=== PATIENT | female | born 1965 | race Caucasian/White ===

== ENCOUNTER 2018-09-05 15:44 | Emergency (ER) | payer BC ==
[2018-09-05] MEDS ORDERED: Tetan/Diph/Pertus SYR(Tdap)* 0.5 ML SYR(BOOSTRIX) use SYR IM ONE (15:45)
--- NOTE | 2018-09-05 15:46 | UC ---
Laceration HPI - HPI Summary HPI Summary: 53 yo female presents with LEFT arm laceration sustained about 30min [employer]. She tells me that she dropped a glass vase and sustained a laceration on her arm. Bandaged the area and came to . Last tetanus was last year. - History Of Current Complaint Stated Complaint: LACERATION ARM Hx Obtained From: Patient Laceration Location: Arm Mechanism Of Injury: Sharp Trauma Onset/Duration: Sudden Onset - Allergies/Home Medications Allergies/Adverse Reactions: Allergies Allergy/AdvReac Type Severity Reaction Status Date / Time aspirin Allergy GI Upset Verified 09/05/18 15:57 latex Allergy Rash Verified 09/05/18 15:57 Home Medications: Home Medications Bupropion XL* [Wellbutrin XL *] 300 mg QAM 09/05/18 [History Confirmed 09/05/18] Eszopiclone [Lunesta] 1 tab BEDTIME 09/05/18 [History Confirmed 09/05/18] PMH/Surg Hx/FS Hx/Imm Hx Respiratory History: Asthma - Surgical History Surgical History: Yes Surgery Procedure, Year, and Place: 11/23 lt knee meniscus,right knee, tonsillectomy, hysterectomy - Family History Known Family History: Positive: Hypertension - Social History Occupation: Employed Full-time Lives: With Family Alcohol Use: Occasionally Substance Use Type: None Smoking Status (MU): Never Smoked Tobacco - Immunization History Most Recent Influenza Vaccination: 1997 Most Recent Tetanus Shot: unknown Review of Systems All Other Systems Reviewed And Are Negative: Yes Constitutional: Positive: Negative Skin: Positive: Other - arm laceration Respiratory: Positive: Negative Cardiovascular: Positive: Negative Neurovascular: Positive: Negative Neurological: Positive: Negative Psychological: Positive: Negative Physical Exam - Summary Physical Exam Summary: GENERAL: NAD. WDWN. No pain distress. SKIN: 3.0cm linear laceration to dorsal aspect of left forearm with mild subcutaneous fat exposed. Wound appear clean. CHEST: No accessory muscle use. Breathing comfortably and in no distress. CV: Pulses intact. Cap refill <2seconds NEURO: Alert. PSYCH: Age appropriate behavior. Triage Information Reviewed: Yes Vital Signs Reviewed: Yes Laceration Repair - Laceration Repair 1 Description: Linear Laceration Size After Repair: Length (cm) - 3.0 Modified For Repair: No Anesthesia Used: 2.0% Lido Irrigation With Pressure Irrigation Device: Yes Closure Material: Sutures - FOUR Closure Method: Single Layer Suture Of: Skin Suture Type: Prolene - 5-0 Laceration Course/Dx - Course/Dx Course Of Treatment: The procedure was explained to the pt and all questions were answered. A time out was performed, witnessed, and signed. The area was irrigated with 250mL sterile saline. 1mL of 2% lidocaine without epi was administered and good anesthetization was achieved. In the usual sterile fashion , FOUR 5-0 prolene interrupted sutures were placed. The wound was bandaged with telfa. Pt tolerated procedure well. - Diagnosis Provider Diagnosis: Laceration of left forearm Discharge - Sign-Out/Discharge Documenting (check all that apply): Patient Departure All imaging exams completed and their final reports reviewed: No Studies - Discharge Plan Condition: Stable Disposition: HOME Patient Education Materials: Care For Your Stitches (ED), Laceration (DC) Referrals: Celsa Barreto MD [Primary Care Provider] - Additional Instructions: If you develop a fever, shortness of breath, chest pain, new or worsening symptoms - please call your PCP or go to the ED. 1) Please keep the area bandaged, clean, dry, and intact for the next 24- 48hours. 2) If you develop a fever, colored or thick discharge, increased pain or swelling - please call your PCP or go to the ED. 3) Please return in 7-10 days to have your FOUR sutures removed. - Billing Disposition and Condition Condition: STABLE Disposition: Home
[2018-09-05] MEDS ORDERED: Lidocaine 2% PF * 5 ML VIAL INJ ONE (15:54)
[2018-09-05] MEDS ORDERED: Lidocaine 2% PF * 5 ML VIAL ONE (15:56)
[2018-09-05 15:59] VITALS: BP 179/84
== END 2018-09-05 16:20 | disposition home or self-care (01) ==
LOC: UCEAST 15:44
DX: S51.812A Laceration without foreign body of left forearm, initial encounter (principal); J45.909 Unspecified asthma, uncomplicated; Z79.82 Long term (current) use of aspirin; Z91.040 Latex allergy status; W45.8XXA Other foreign body or object entering through skin, initial encounter; Y92.9 Unspecified place or not applicable
CPT/HCPCS: 12001; 99211; G0463

== ENCOUNTER 2019-01-23 07:05 | Emergency (ER) | payer BC ==
--- NOTE | 2019-01-23 07:08 | UC ---
Cardiac HPI - HPI Summary HPI Summary: Patient presents to urgent care reporting left-sided chest heaviness. Patient states last night she had squeezing sensation that went to her left axilla and bicep. Patient states she took Tums that did not make a difference. Patient states she then progressed to have heavy feeling. No radiation. No shortness of breath no diet diaphoresis no nausea. Patient did not take anything more for pain. Patient states she was alone and took Lunesta to help her sleep last night Tierra feel comfortable driving. Patient came this morning just to be evaluated. Patient does not have a history of hypertension, diabetes, hypercholesterol. Paternal grandfather had an PA. Parents are both from lung cancer. Patient's medications reviewed this visit. - History of Current Complaint Stated Complaint: CHEST PAIN Time Seen by Provider: 01/23/19 07:07 Hx Obtained From: Patient Onset/Duration: Gradual Onset Initial Severity: Mild Chest Pain Location: Left Lateral Character: Heaviness, Pressure/Squeezing - Allergy/Home Medications Allergies/Adverse Reactions: Allergies Allergy/AdvReac Type Severity Reaction Status Date / Time latex Allergy Rash Verified 01/23/19 07:13 aspirin AdvReac GI Upset Verified 01/23/19 07:13 Home Medications: Home Medications Loratadine [Claritin 10 MG CAP] 10 mg PO BEDTIME 01/23/19 [History Confirmed ] PMH/Surg Hx/FS Hx/Imm Hx Previously Healthy: Yes Psychological History: Depression - Surgical History Surgical History: Yes Surgery Procedure, Year, and Place: 11/23 lt knee meniscus,right knee, tonsillectomy, hysterectomy - Family History Known Family History: Positive: Cardiac Disease - paternal grandfather, Hypertension - Social History Occupation: Employed Full-time Lives: With Family Alcohol Use: Occasionally Substance Use Type: None Smoking Status (MU): Never Smoked Tobacco - Immunization History Most Recent Influenza Vaccination: 1997 Most Recent Tetanus Shot: unknown Review of Systems All Other Systems Reviewed And Are Negative: Yes Cardiovascular: Positive: Chest Pain Physical Exam - Summary Physical Exam Summary: Vital Signs Reviewed: Yes A+Ox3, tearful Eyes: Conjunctiva Clear, LEVI. EOM intact and full ENT: Hearing grossly normal TM x 2 clear, mmoist, uvula midline, no exudate, no erythema Neck: Positive: Supple Respiratory: Positive: No respiratory distress, No accessory muscle use + CTA throughout no w/r Cardiovascular: RRR nl s1, s2 no m/r CBT <2 sec abd soft + BS nt/nd no guarding, no distension Musculoskeletal Exam: CHACON x 4 without difficulty Strength Intact, ROM Intact Neurological: Positive: Alert, + sensation throughout Psychological: Positive: Normal Response To Family Skin: Positive: no rash, no ecchymosis Triage Information Reviewed: Yes Diagnostics - EKG Cardiac Rate: NL Cardiac Rhythm: Sinus: Normal Ectopy: None ST Segment: Normal - Assessment/Plan Course Of Treatment: Patient presents to urgent care for evaluation of chest discomfort started last night. Patient states initially he was a squeezing pain that went into her left axilla and bicep. Patient polly heaviness. No shortness of breath no change with position no nausea vomiting. Patient without cardiac history. Patient did not eat or drink anything today. On exam vital signs are stable. No reproducible pain. We'll give aspirin. EKG nondiagnostic for STEMI. We'll send to emergency department for further evaluation by EMS. Patient comfortable in agreement with plan. Spoke to MARY ANN Livingston in the ED who is aware patient coming. - Clinical Impression Provider Diagnosis: Chest pain Discharge - Sign-Out/Discharge Documenting (check all that apply): Patient Departure All imaging exams completed and their final reports reviewed: No Studies - Discharge Plan Condition: Good Disposition: TRANS HIGHER LVL OF CARE FAC Referrals: Celsa Barreto MD [Primary Care Provider] - - Billing Disposition and Condition Condition: GOOD Disposition: Trans Higher Lvl of Care Fac
[2019-01-23] MEDS ORDERED: Aspirin 81 mg CHEW TAB* 81 MG TAB.CHEW PO ONE (07:30)
[2019-01-23 07:38] VITALS: BP 141/71
== END 2019-01-23 07:50 | disposition short-term general hospital (02) ==
LOC: UCEAST 07:05
DX: R07.89 Other chest pain (principal); F32.9 Major depressive disorder, single episode, unspecified; Z88.6 Allergy status to analgesic agent; Z91.040 Latex allergy status; Z82.49 Family history of ischemic heart disease and other diseases of the circulatory system
CPT/HCPCS: 93005; 99213; A9270-GY; G0463

== ENCOUNTER 2019-01-23 08:09 | Emergency (ER) | payer BC ==
[2019-01-23 08:35] LABS: ABS Basophils 0.1 10^3/ul (0-0.2); ABS Eosinophils 0.1 10^3/ul (0-0.6); ABS Lymphocytes 1.7 10^3/ul (1.0-4.8); ABS Monocytes 0.3 10^3/ul (0-0.8); ABS Neutrophils 3.2 10^3/ul (1.5-7.7); Eosinophil % 1.7 %; Hematocrit 41 % (35-47); Hemoglobin 13.6 g/dL (12.0-16.0); Lymphocyte % 31.3 %; Mean Corpuscular HGB Conc 33 g/dL (31-36); Mean Corpuscular Hemoglobin 27 pg (27-31); Mean Corpuscular Volume 81 fL (80-97); Mean Platelet Volume 7.9 fL (7.4-10.4); Nucleated Red Blood Cells % 0.2; Platelet Count 289 10^3/uL (150-450); Red Blood Count 5.13 10^6 /uL (3.70-4.87); Red Cell Distribution Width 14 % (10.5-15); White Blood Count 5.4 10^3/uL (3.5-10.8)
[2019-01-23 08:41] LABS: INR 0.91 (0.82-1.09)
[2019-01-23 08:53] LABS: Albumin 4.2 g/dL (3.2-5.2); Albumin/Globulin Ratio 1.8 (1-3); BUN/Creatinine Ratio 20.3 (8-20); Calcium 9.3 mg/dL (8.6-10.3); EGFR African American 98.6 (>60); EGFR Non-African American 81.5 (>60); Globulin 2.4 g/dL (2-4); Magnesium 2.1 mg/dL (1.9-2.7); Potassium 4.1 mmol/L (3.5-5.0); Total Bilirubin 0.4 mg/dL (0.2-1.0); Total Protein 6.6 g/dL (6.4-8.9)
[2019-01-23 10:05] VITALS: BP 121/71
--- NOTE | 2019-01-23 10:40 | ED ---
HPI Chest Pain - HPI Summary HPI Summary: patient is a 53-year-old female coming to the ED from urgent care. Patient endorses left-sided chest "heaviness." She states she began to feel this last evening which radiated to her left upper arm. She took Tums twice overnight which did not relieve her symptoms. Symptoms are not worse with exertion or better with rest. Patient has no significant PMH including no history of hypertension, hypercholesterol, smoking history, diabetes. She was given 2 aspirin at urgent care which did not improve her symptoms. She does have a history of anxiety, but states this feels somewhat different than her typical anxiety symptoms. She states she has not been sleeping well lately and is endorsing fatigue. - History of Current Complaint Chief Complaint: EDChestPainROMI Time Seen by Provider: 01/23/19 08:12 Hx Obtained From: Patient Onset/Duration: Started Hours Ago Timing: Constant Initial Severity: Moderate Current Severity: Mild Pain Intensity: 3 Pain Scale Used: 0-10 Numeric Chest Pain Location: Left Anterior Chest Pain Radiates: Yes Chest Pain Radiates To:: Arm - upper arm/axillary area Character: Heaviness Aggravating Factor(s): Nothing Alleviating Factor(s): Nothing Associated Signs and Symptoms: Positive: Chest Pain, Anxiety, Recent Stress. Negative: Vision Changes, Headaches, Tingling, Weakness, Dizziness, Shortness of Breath - Risk Factors Pulmonary Embolism Risk Factors: Negative TAD Risk Factors: Negative - Allergy/Home Medications Allergies/Adverse Reactions: Allergies Allergy/AdvReac Type Severity Reaction Status Date / Time latex Allergy Rash Verified 01/23/19 07:13 aspirin AdvReac GI Upset Verified 01/23/19 07:13 PMH/Surg Hx/FS Hx/Imm Hx Previously Healthy: Yes Endocrine/Hematology History: Denies: Hx Diabetes, Hx Thyroid Disease Cardiovascular History: Denies: Hx Hypertension, Hx Pacemaker/ICD Respiratory History: Reports: Hx Asthma Denies: Hx Chronic Obstructive Pulmonary Disease (COPD) GI History: Denies: Hx Ulcer Musculoskeletal History: Reports: Hx Arthritis - OSTEO- LEFT THUMB, Other Musculoskeletal History - ELBOWS- STATES RELATED TO CARPAL TUNNEL Denies: Hx Scoliosis Sensory History: Reports: Hx Contacts or Glasses - WILL WEAR GLASSES DAY OF SURGERY Denies: Hx Hearing Aid Opthamlomology History: Reports: Hx Contacts or Glasses - WILL WEAR GLASSES DAY OF SURGERY Neurological History: Denies: Hx Headaches Psychiatric History: Reports: Hx Anxiety - ON MEDICATION FOR, Hx Depression - ON MEDICATION Denies: Hx Panic Disorder - Surgical History Surgery Procedure, Year, and Place: 11/23 lt knee meniscus,right knee, tonsillectomy, hysterectomy Hx Anesthesia Reactions: Yes - HYSTERECTOMY- N/V- TREATED WITH RELIEF - Immunization History Hx Pertussis Vaccination: No Immunizations Up to Date: Yes Infectious Disease History: No Infectious Disease History: Denies: Hx Clostridium Difficile, Hx Hepatitis, Hx Human Immunodeficiency Virus (HIV), Hx of Known/Suspected MRSA, Hx Shingles, Hx Tuberculosis, Hx Known/ Suspected VRE, Hx Known/Suspected VRSA, History Other Infectious Disease, Traveled Outside the [place] in Last 30 Days - Family History Known Family History: Positive: Cardiac Disease - paternal grandfather, Hypertension, Non-Contributory - Social History Occupation: Employed Full-time Lives: With Family Alcohol Use: Occasionally Hx Substance Use: No Substance Use Type: Reports: None Hx Tobacco Use: No Smoking Status (MU): Never Smoked Tobacco Review of Systems Negative: Fever, Chills, Fatigue, Skin Diaphoresis Negative: Epistaxis, Dental Pain Positive: Chest Pain - heaviness. Negative: Palpitations Negative: Shortness Of Breath, Cough Negative: Abdominal Pain, Vomiting, Diarrhea, Nausea Genitourinary: Negative Positive: no symptoms reported, see HPI Negative: Arthralgia, Myalgia Negative: Rash, Bruising Negative: Headache, Weakness, Paresthesia, Numbness, Syncope, Slurred Speech Positive: Anxious All Other Systems Reviewed And Are Negative: Yes Physical Exam Triage Information Reviewed: Yes Vital Signs On Initial Exam: Initial Vitals Temp Pulse Resp BP Pulse Ox 97 F 71 18 125/68 99 01/23/19 08:11 01/23/19 08:11 01/23/19 08:11 01/23/19 08:11 01/23/19 08:11 Vital Signs Reviewed: Yes Appearance: Positive: Well-Appearing, Well-Nourished Skin: Positive: Warm, Skin Color Reflects Adequate Perfusion Head/Face: Positive: Normal Head/Face Inspection, Temporal Artery Tenderness Eyes: Positive: EOMI, LEVI, Conjunctiva Clear Neck: Positive: Supple, No Lymphadenopathy Respiratory/Lung Sounds: Positive: Clear to Auscultation, Breath Sounds Present Cardiovascular: Positive: RRR, Pulses are Symmetrical in both Upper and Lower Extremities. Negative: Tachycardia, Leg Edema Left, Leg Edema Right Abdomen Description: Positive: Nontender, No Organomegaly, Soft Musculoskeletal: Positive: Normal, Strength/ROM Intact Neurological: Positive: Sensory/Motor Intact, Alert, Oriented to Person Place, Time, Facial Symmetry, Speech Normal Psychiatric: Positive: Anxious Diagnostics - Vital Signs Vital Signs Temp Pulse Resp BP Pulse Ox 01/23/19 10:04 97.8 F 72 18 121/71 97 01/23/19 10:00 16 121/70 01/23/19 09:44 63 15 114/73 97 01/23/19 09:15 75 25 107/72 97 01/23/19 09:00 76 18 100 01/23/19 08:44 69 15 130/75 98 01/23/19 08:15 71 125/68 99 01/23/19 08:14 74 99 01/23/19 08:11 97 F 71 18 125/68 99 - Laboratory Lab Results: Lab Results 01/23/19 01/23/19 01/23/19 Range/Units 08:26 08:26 08:26 WBC 5.4 (3.5-10.8) 10^3/uL RBC 5.13 H (3.70-4.87) 10^6 /uL Hgb 13.6 (12.0-16.0) g/dL Hct 41 (35-47) % MCV 81 (80-97) fL MCH 27 (27-31) pg MCHC 33 (31-36) g/dL RDW 14 (10.5-15) % Plt Count 289 (150-450) 10^3/uL MPV 7.9 (7.4-10.4) fL Neut % (Auto) 59.9 % Lymph % (Auto) 31.3 % [place] % (Auto) 5.9 % Eos % (Auto) 1.7 % Baso % (Auto) 1.2 % Absolute Neuts (auto) 3.2 (1.5-7.7) 10^3/ul Absolute Lymphs (auto) 1.7 (1.0-4.8) 10^3/ul Absolute Monos (auto) 0.3 (0-0.8) 10^3/ul Absolute Eos (auto) 0.1 (0-0.6) 10^3/ul Absolute Basos (auto) 0.1 (0-0.2) 10^3/ul Absolute Nucleated RBC 0.0 10^3/ul Nucleated RBC % 0.2 INR (Anticoag Therapy) 0.91 (0.82-1.09) D-Dimer, Quantitative < 200 (Less Than 230) ng/mL Sodium 140 (135-145) mmol/L Potassium 4.1 (3.5-5.0) mmol/L Chloride 108 (101-111) mmol/L Carbon Dioxide 26 (22-32) mmol/L Anion Gap 6 (2-11) mmol/L BUN 15 (6-24) mg/dL Creatinine 0.74 (0.51-0.95) mg/dL Est GFR ( Amer) 98.6 (>60) Est GFR (Non-Af Amer) 81.5 (>60) BUN/Creatinine Ratio 20.3 H (8-20) Glucose 97 (70-100) mg/dL Lactic Acid (0.5-2.0) mmol/L Calcium 9.3 (8.6-10.3) mg/dL Magnesium 2.1 (1.9-2.7) mg/dL Total Bilirubin 0.40 (0.2-1.0) mg/dL AST 15 (13-39) U/L ALT 21 (7-52) U/L Alkaline Phosphatase 84 (34-104) U/L Troponin I 0.00 (<0.04) ng/mL Total Protein 6.6 (6.4-8.9) g/dL Albumin 4.2 (3.2-5.2) g/dL Globulin 2.4 (2-4) g/dL Albumin/Globulin Ratio 1.8 (1-3) 01/23/ Range/Units 08:26 WBC (3.5-10.8) 10^3/uL RBC (3.70-4.87) 10^6 /uL Hgb (12.0-16.0) g/dL Hct (35-47) % MCV (80-97) fL MCH (27-31) pg MCHC (31-36) g/dL RDW (10.5-15) % Plt Count (150-450) 10^3/uL MPV (7.4-10.4) fL Neut % (Auto) % Lymph % (Auto) % [place] % (Auto) % Eos % (Auto) % Baso % (Auto) % Absolute Neuts (auto) (1.5-7.7) 10^3/ul Absolute Lymphs (auto) (1.0-4.8) 10^3/ul Absolute Monos (auto) (0-0.8) 10^3/ul Absolute Eos (auto) (0-0.6) 10^3/ul Absolute Basos (auto) (0-0.2) 10^3/ul Absolute Nucleated RBC 10^3/ul Nucleated RBC % INR (Anticoag Therapy) (0.82-1.09) D-Dimer, Quantitative (Less Than 230) ng/mL Sodium (135-145) mmol/L Potassium (3.5-5.0) mmol/L Chloride (101-111) mmol/L Carbon Dioxide (22-32) mmol/L Anion Gap (2-11) mmol/L BUN (6-24) mg/dL Creatinine (0.51-0.95) mg/dL Est GFR ( Amer) (>60) Est GFR (Non-Af Amer) (>60) BUN/Creatinine Ratio (8-20) Glucose (70-100) mg/dL Lactic Acid 1.0 (0.5-2.0) mmol/L Calcium (8.6-10.3) mg/dL Magnesium (1.9-2.7) mg/dL Total Bilirubin (0.2-1.0) mg/dL AST (13-39) U/L ALT (7-52) U/L Alkaline Phosphatase (34-104) U/L Troponin I (<0.04) ng/mL Total Protein (6.4-8.9) g/dL Albumin (3.2-5.2) g/dL Globulin (2-4) g/dL Albumin/Globulin Ratio (1-3) Result Diagrams: 01/23/19 08:26 01/23/19 08:26 Lab Statement: Any lab studies that have been ordered have been reviewed, and results considered in the medical decision making process. Chest Pain Course/Dx - Course Course Of Treatment: During this course of treatment, the patient is evaluated for left-sided chest heaviness. She denies any chest pain or shortness of breath. She denies any urinary symptoms, back pain, abdominal pain, headache, visual changes. Labs obtained which included troponin of 0.00. Chest x-ray shows no acute cardiopulmonary disease. Labs are otherwise WNL and benign. EKG shows normal sinus rhythm. Discussed results with patient. Patient states she feels comfortable following up with Dr. Celsa herrera, PCP and agrees to return to the ED for any worsening or changing symptoms. MONICA score = 1 for severe angina. Heart score = 1 for age. Risk factors are low. She is discharged with dx of angina, atypical chest pain and anxiety. Vital signs upon discharge are 97.8, heart rate is 72, respirations 18, 97% on room air 121/ 71. - Chest Pain Differential Diagnosis/HQI/PQRI: Acute ME, ACS, Angina, Chest Wall - Diagnoses Provider Diagnoses: Atypical chest pain, Anxiety Discharge - Sign-Out/Discharge Documenting (check all that apply): Patient Departure Patient Received Moderate/Deep Sedation with Procedure: No - Discharge Plan Condition: Stable Disposition: HOME Patient Education Materials: Chest Pain (ED) Referrals: Celsa Herrera MD [Primary Care Provider] - Additional Instructions: Please follow up with Dr. Herrera in a few days as discussed, if any symptoms worsen, return to the ED immediately - Billing Disposition and Condition Condition: STABLE Disposition: Home
[2019-01-24 22:02] LABS: B garinii/B afzelii PCR Negative (Negative); B mayonii PCR Negative (Negative)
== END 2019-01-23 10:04 | disposition home or self-care (01) ==
LOC: ED 08:09
DX: R07.89 Other chest pain (principal); F41.9 Anxiety disorder, unspecified; Z88.8 Allergy status to other drugs, medicaments and biological substances; Z91.040 Latex allergy status; Z82.49 Family history of ischemic heart disease and other diseases of the circulatory system
CPT/HCPCS: 36415; 71046; 80053; 83605; 83735; 84484; 85025; 85379; 85610; 87476; 87798; 93005; 99283

== ENCOUNTER 2019-08-01 07:16 | Emergency (ER) | payer BC ==
--- OUTSIDE RECORDS SUMMARY | 2019-08-01 07:24 | XMS REPORT | Continuity of Care Document ---
:1965 External Reference #:[id number] Author Name Lexi Escamilla, DO Address [address] [place] [address] Problems Active Problems Provider Date Adult health examination Onset: 08/16/2018 Vitreous degeneration Onset: 01/11/2018 Knee pain Onset: 12/04/2014 Inactive Problems Depressive disorder Onset: 03/15/2019 Inactive: 03/15/2019 Anxiety disorder Onset: 02/15/2019 Inactive: 02/15/2019 Chest pain Onset: 02/15/2019 Inactive: 02/15/2019 Social History Type Date Description Comments Sex Unknown Allergies, Adverse Reactions, Alerts Active Allergies Reaction Severity Comments Date NKDA 06/22/2019 Environmental 06/22/2019 Medications Active Medications SIG Qnty Indications Ordering Provider Date Venlafaxine HCL 3 daily oral 90tabs Raúl Dave MD 03/15/2019 37.5mg Tablets Eszopiclone Oral; Take 1 30tabs Unknown 02/26/2019 2mg Tablets Tablet By Mouth AT Bedtime Loratadine 1 once each day Unknown 03/08/2018 10mg Tablets prn Oral Multivitamin Oral Unknown 12/04/2014 Liquid History Medications Venlafaxine HCL ER 1 daily Oral 60caps Unknown 02/15/2019 - 03/15/2019 75mg Caps ER 24HR Bupropion Hydrochloride ER Oral; Take 1 Tablet 30tabs Unknown 02/06/2019 - 02/15/2019 (SR) By Mouth Every Day 150mg Tablets ER 12HR Medications Administered in Office Medication SIG Qnty Indications Ordering Provider Date DTaP Vaccine Younger Than 7 Unknown 05/10/2018 (Infanrix) Injection Immunizations CPT Code Status Date Vaccine Lot # [id number] Given 06/22/2019 Flu < 65 years [id number] 93785 Given 08/16/2018 Influenza Virus Vaccine, Quadrivalent, Split Virus, Im Use 0.5ML 05671 Given 08/16/2018 Flu < 65 years 24029 Given 08/16/2018 Influenza Virus Vaccine, Quadrivalent, Split, Preservative Free 71193 Given 08/16/2018 Flumist 41341 Given 08/16/2018 Flu High Dose 09806 Given 08/16/2018 Influenza Virus Vaccine, Split, Preserv Free, Intradermal Use 06856 Given 05/10/2018 Shingrix - Shingles vaccine, Herpes Zoster 55180 Given 05/10/2018 Polio - Ipol 09464 Given 05/10/2018 Kinrix - DTaP-IPV for 4 - 6 yrs 96098 Given 03/08/2018 Tdap - Boostrix/Adacel 68499 Given 03/08/2018 Shingrix - Shingles vaccine, Herpes Zoster 46534 Given 06/29/2013 Influenza Virus Vaccine, Quadrivalent, Split, Im Use 0.25ML 16105 Given 06/16/2013 Influenza Virus Vaccine, Quadrivalent, Split, Im Use 0.25ML 57387 Given 06/16/2013 Influenza Virus Vaccine, Quadrivalent, Split, Im Use 0.25ML 14334 Given 06/16/2013 Influenza Virus Vaccine, Quadrivalent, Split, Im Use 0.25ML 80163 Given 06/16/2013 Flu < 65 years 24112 Given 06/16/2013 Influenza Virus Vaccine, Quadrivalent, Split, Preservative Free 33048 Given 06/16/2013 Flumist 59421 Given 06/16/2013 Flu High Dose 28461 Given 06/16/2013 Influenza Virus Vaccine Split Virus Intramuscular Use 0.5ML 24113 Given 08/28/2004 Influenza Virus Vaccine, Quadrivalent, Split, Im Use 0.25ML 31849 Given 09/13/2001 Influenza Virus Vaccine, Quadrivalent, Split, Im Use 0.25ML Vital Signs Date Vital Result Comment 06/22/2019 12:03pm BP Systolic 136 mmHg BP Diastolic 62 mmHg Heart Rate 81 /min Body Temperature 98.4 F O2 % BldC Oximetry 99 % 03/15/2019 9:30am BP Systolic 126 mmHg Weight 231.00 lb Heart Rate 105 /min Body Temperature 97.5 F O2 % BldC Oximetry 99 % Results Test Date Facility Test Result H/L Range Note INR 01/23/2019 N2N/CCD Import INR 0.91 _ 0.82-1.09 Lactic Acid 01/23/2019 N2N/CCD Import Lactic Acid 1.0 mmol/L 0.5-2.0 mmol/L Lymph# 01/23/2019 N2N/CCD Import Lymph# 1.7 10_3/ul 1.0-4.8 10 3/ul Lymph% 01/23/2019 N2N/CCD Import Lymph% 31.3 % 20 - 45 % Magnesium 01/23/2019 N2N/CCD Import Magnesium 2.1 mg/dL 1.9-2.7 mg/dL MCH 01/23/2019 N2N/CCD Import MCH 27 pg 27-31 pg MCHC 01/23/2019 N2N/CCD Import MCHC 33 g/dL 31-36 g/dL MCV 01/23/2019 N2N/CCD Import MCV 81 fL 80-97 fL [place]# 01/23/2019 N2N/CCD Import [place]# 0.3 10_3/ul 0-0.8 10 3/ul [place]% 01/23/2019 N2N/CCD Import [place]% 5.9 % 0 - 10 % MPV 01/23/2019 N2N/CCD Import MPV 7.9 fL 7.4-10.4 fL Neut# 01/23/2019 N2N/CCD Import Neut# 3.2 10_3/ul 1.5-7.7 10 3/ul Neut% 01/23/2019 N2N/CCD Import Neut% 59.9 % 45 - 70 % NRBC# 01/23/2019 N2N/CCD Import NRBC# 0.0 10_3/ul NRBC% 01/23/2019 N2N/CCD Import NRBC% 0.2 _ Platelets 01/23/2019 N2N/CCD Import Platelets 289 10_3/uL 150-450 10 3/uL Potassium 01/23/2019 N2N/CCD Import Potassium 4.1 mmol/L 3.5-5.0 mmol/L Protein, Total 01/23/2019 N2N/CCD Import Protein, Total 6.6 g/dL 6.4- 8.9 g/dL RBC 01/23/2019 N2N/CCD Import RBC 5.13 High 3.70-4.87 10_6_/uL 10 6 /uL RDW 01/23/2019 N2N/CCD Import RDW 14 % 10.5-15 % Sodium 01/23/2019 N2N/CCD Import Sodium 140 mmol/L 135-145 mmol/L Troponin 01/23/2019 N2N/CCD Import Troponin 0.00 ng/mL <0.04 ng/mL WBC 01/23/2019 N2N/CCD Import WBC 5.4 10_3/uL 3.5-10.8 10 3/uL A/G Ratio 01/23/2019 N2N/CCD Import A/G Ratio 1.8 _ 1-3 Albumin 01/23/2019 N2N/CCD Import Albumin 4.2 g/dL 3.2-5.2 g/dL Alk Phos 01/23/2019 N2N/CCD Import Alk Phos 84 U/L 34-104 U/L Alt 01/23/2019 N2N/CCD Import Alt 21 U/L 7-52 U/L Anion Gap 01/23/2019 N2N/CCD Import Anion Gap 6 mmol/L 2-11 mmol/L Ast 01/23/2019 N2N/CCD Import Ast 15 U/L 13-39 U/L Baso# 01/23/2019 N2N/CCD Import Baso# 0.1 10_3/ul 0-0.2 10 3/ul Baso% 01/23/2019 N2N/CCD Import Baso% 1.2 % 0 - 2 % Bilirubin Total 01/23/2019 N2N/CCD Import Bilirubin Total 0.40 mg/dL 0.2 -1.0 mg/dL BUN 01/23/2019 N2N/CCD Import BUN 15 mg/dL 6-24 mg/dL BUN/Creat Ratio 01/23/2019 N2N/CCD Import BUN/Creat Ratio 20.3 _ High 8- 20 Calcium 01/23/2019 N2N/CCD Import Calcium 9.3 mg/dL 8.6-10.3 mg/dL Chloride 01/23/2019 N2N/CCD Import Chloride 108 mmol/L 101-111 mmol/L Co2 01/23/2019 N2N/CCD Import Co2 26 mmol/L 22-32 mmol/L Creatinine 01/23/2019 N2N/CCD Import Creatinine 0.74 mg/dL 0.51-0.95 mg/dL D Dimer 01/23/2019 N2N/CCD Import D Dimer < 200 Less Than 230 ng/mL Eosin# 01/23/2019 N2N/CCD Import Eosin# 0.1 10_3/ul 0-0.6 10 3/ul Eosin% 01/23/2019 N2N/CCD Import Eosin% 1.7 % 0 - 5 % GFR Afr Amer 01/23/2019 N2N/CCD Import GFR Afr Amer 98.6 _ >60 GFR Non Afr Amer 01/23/2019 N2N/CCD Import GFR Non Afr 81.5 _ >60 Amer Globulin 01/23/2019 N2N/CCD Import Globulin 2.4 g/dL 2-4 g/dL Glucose 01/23/2019 N2N/CCD Import Glucose 97 mg/dL 70-100 mg/dL Hematocrit 01/23/2019 N2N/CCD Import Hematocrit 41 % 35-47 % Hemoglobin 01/23/2019 N2N/CCD Import Hemoglobin 13.6 g/dL 12.0-16.0 g/dL Procedures Description No Information Available Medical Devices Description No Information Available Encounters Type Date Location Provider Dx Diagnosis Office Visit 06/22/2019 [facility] Lexi Karnow, F33.41 Major depressive 11:45a disorder, recurrent, in partial remission F41.1 Generalized anxiety disorder G47.00 Insomnia, unspecified Assessments Date Code Description Provider 06/22/2019 F33.41 Major depressive disorder, recurrent, in [facility] , partial remission 06/22/2019 F41.1 Generalized anxiety disorder Lexi Francine, 06/22/2019 G47.[address], [address] [facility] Future [facility]ment(s):09/22/2019 9:15 am - Lexi Escamilla, DO at [facility] Major depressive disorder, recurrent, in partial remissionComments:Overall mood is stable. Having negative side effects from the medication and things are already improving since weaning offWe discussed mood management without meds - sleeping well, exercising regularly, eating well, therapy as neededPlan is to continue slow wean We will follow up in 3 months to see how things are going or sooner if [id number] Generalized anxiety anpiodidP29.00 Insomnia, unspecifiedComments:Discussed Lunesta - ok to continue - also sleep hygiene is very important Functional Status Description No Information Available Mental Status Description No Information Available Referrals Description No Information Available
[2019-08-01 07:27] VITALS: BP 140/80
--- NOTE | 2019-08-01 07:40 | UC ---
Lower Extremity/Ankle HPI - HPI Summary HPI Summary: 54 yo with injury to right foot when she slipped on ice one week ago, landing on her right side. She has pain in the mid foot and forefoot, with some mid foot bruising. Using ibuprofen 600mg up to 4 times per day. hx of posterior tibialis tendonitis - History of Current Complaint Chief Complaint: UCLowerExtremity Stated Complaint: FOOT INJURY Time Seen by Provider: 08/01/19 07:33 Hx Obtained From: Patient Onset/Duration: Sudden Onset, Lasting Days - 7 Severity Initially: Moderate Severity Currently: Moderate Pain Intensity: 6 Aggravating Factor(s): Standing, Ambulation Alleviating Factor(s): Rest Able to Bear Weight: Yes - Risk Factors Gout Risk Factors: Negative DVT Risk Factors: Negative Septic Arthritis Risk Factor: Negative - Allergies/Home Medications Allergies/Adverse Reactions: Allergies Allergy/AdvReac Type Severity Reaction Status Date / Time latex Allergy Rash Verified 08/01/19 07:27 aspirin AdvReac GI Upset Verified 08/01/19 07:27 PMH/Surg Hx/FS Hx/Imm Hx Previously Healthy: Yes Psychological History: Depression - Surgical History Surgical History: Yes Surgery Procedure, Year, and Place: 11/23 lt knee meniscus,right knee, tonsillectomy, hysterectomy - Family History Known Family History: Positive: Cardiac Disease - paternal grandfather, Hypertension, Non-Contributory - Social History Alcohol Use: Occasionally Substance Use Type: None Smoking Status (MU): Never Smoked Tobacco - Immunization History Most Recent Influenza Vaccination: 1997 Most Recent Tetanus Shot: unknown Review of Systems All Other Systems Reviewed And Are Negative: Yes Constitutional: Positive: Negative Skin: Positive: Negative Eyes: Positive: Negative ENT: Positive: Negative Respiratory: Positive: Negative Cardiovascular: Positive: Negative Gastrointestinal: Positive: Other - using TUMS along with ibuprofen to decrease epigastric discomfort which began with use of venlafaxine. Musculoskeletal: Positive: Arthralgia Neurological: Positive: Negative Psychological: Positive: Negative Physical Exam Triage Information Reviewed: Yes Appearance: Well-Appearing, Pain Distress - mild Vital Signs: Initial Vital Signs Temp 95.9 F 08/01/19 07:23 Pulse 86 08/01/19 07:23 Resp 18 08/01/19 07:23 BP 140/80 08/01/19 07:23 Pulse Ox 97 08/01/19 07:23 ENT: Positive: Normal ENT inspection Neck exam: Normal Respiratory Exam: Normal Cardiovascular Exam: Normal Musculoskeletal Exam: Other - mild midfoot ecchymosis overlying 4th and 5th metatarsals. Minimal swelling. No tenderness over navicular, no swelling or erythema. Musculoskeletal: Positive: Strength Intact, ROM Intact - both ankle and midfoot. Neurological Exam: Normal Neurological: Positive: Alert, Muscle Tone Normal Psychological Exam: Normal Skin Exam: Normal Diagnostics - Radiology No standard instances Radiology Interpretation Completed By: Radiologist - Patient Name: LIZZIE PALMA Medical Record#: [id number] Ordering Physician: Celsa Barreto MD Acct.#: [id number] : 1965 Age: 54 Sex: F Location: [facility] Exam Date: 08/01/19738 ADM Status: REG ER Order Information: FOOT RIGHT 3+ VWS Accession Number: [id number] CPT: 84263 INDICATION: Right forefoot pain one week after a fall COMPARISON: None. TECHNIQUE: 3 views of the right foot were obtained. FINDINGS: The adequately corticated bones are properly aligned. Along the proximal medial margin of the navicular bone there is a 9 mm well-circumscribed bony focus that appears to be adequately corticated and unlikely to be an acute avulsion fracture. At the great toe metatarsophalangeal joint there is valgus angulation measuring approximately 40 mm. Degenerative changes at this joint include sclerotic change. There is sclerotic change at the joint space between the great toe metatarsal and tarsal bone. No fracture, dislocation or focal bony abnormality is seen. IMPRESSION: 1. ALONG THE PROXIMAL MEDIAL MARGIN OF THE NAVICULAR BONE THERE IS A 9 MM BONY FOCUS THAT APPEARS TO BE WELL CIRCUMSCRIBED. THIS IS LIKELY A CHRONIC BONY OSSICLE OPPOSED TO AN AVULSION FRACTURE. PLEASE CORRELATE TO FOCALITY THE PATIENT'S PAIN. 2. DEGENERATIVE CHANGES OF THE RIGHT FOOT INCLUDING HALLUX VALGUS DEFORMITY. If the patient's symptoms persist, follow-up imaging is recommended. <Electronically signed by Alfonso Garduno MD in [place]> 08/01/19 0835 Dictated By: Alfonso Garduno MD Dictated Date/Time: 08/01/19803 Transcribed Date/Time: 08/01/19803 Copy to: CC:Lexi Escamilla DO; Celsa Barreto MD Imaging - [facility] Imaging - [facility] Imaging - [facility] [id number] [place], [place] [id number] [place] [address] [place] [address] ph ([phone]) ph ([phone]) ph ([phone]) This report is only to be considered final once signed by the Provider(s) as displayed in the "<Electronically Signed by > " field (s). Absence of a signature indicates the report is in a draft status and still needs to be finalized. In the event this document was created by someone other than the signing Provider, the individual initiating the document will be listed in the "Entered by:" or "Dictated by:" bustillo. 1 of 1 Lower Extremity Course/Dx - Course Course Of Treatment: mid foot strain secondary to fall; discussed and she would like CAM boot and will follow up with Dr. Mares. Will continue ibuprofen and ice. - Differential Dx/Diagnosis Differential Diagnosis/HQI/PQRI: Fracture (Closed), Sprain, Strain Provider Diagnosis: Strain of right foot Discharge ED - Sign-Out/Discharge Documenting (check all that apply): Patient Departure All imaging exams completed and their final reports reviewed: Yes - Discharge Plan Condition: Stable Disposition: HOME Prescriptions: Meloxicam 7.5 mg PO BID #40 tablet Patient Education Materials: Foot Sprain (ED) Referrals: Lexi Escamilla DO [Primary Care Provider] - Celsa Mares DPM [Doctor of Podiatric Medicine] - Additional Instructions: use the CAM walker for support. Discontinue ibuprofen and use meloxicam as an anti-inflammatory which will be easier on your stomach. Continue to apply uce. - Billing Disposition and Condition Condition: STABLE Disposition: Home
== END 2019-08-01 09:15 | disposition home or self-care (01) ==
LOC: UCEAST 07:16
DX: S96.911A Strain of unspecified muscle and tendon at ankle and foot level, right foot, initial encounter (principal); Z88.6 Allergy status to analgesic agent; Z91.040 Latex allergy status; W00.0XXA Fall on same level due to ice and snow, initial encounter; Y92.9 Unspecified place or not applicable
CPT/HCPCS: 99213; G0463

== ENCOUNTER 2019-09-15 23:17 | Emergency (ER) | payer BC ==
[2019-09-15] MEDS ORDERED: NS 0.9% 1000 ML** 1,000 ML IV ONE (23:46)
--- NOTE | 2019-09-15 23:46 | ED ---
Abdominal Pain/Female - HPI Summary HPI Summary: Patient complains of left upper quadrant abdominal pain 2 days occasionally radiating down to left lower quadrant. Abdominal pain described as constant, sharp, new onset, at worst 10/10, currently 3/10, worse with food, worse with movement. Denies fever, cough, sore throat, CP, SOB, N/3/D, change in urine, change in BM, vaginal symptoms. Medical history is none. Abdominal surgical history is complete hysterectomy. Nonsmoker. - History of Current Complaint Chief Complaint: EDAbdPain Stated Complaint: UPPER L ABD PAIN PER PT Time Seen by Provider: 09/15/19 23:43 Hx Obtained From: Patient Onset/Duration: Sudden Onset, Lasting Days Timing: Constant Severity Initially: Severe Severity Currently: Mild Pain Intensity: 3 Pain Scale Used: 0-10 Numeric Location: Discrete At: LUQ Radiates: Yes Radiates to: LLQ Character: Sharp Aggravating Factor(s): Food, Movement Alleviating Factor(s): Position Associated Signs and Symptoms: Positive: Negative Allergies/Adverse Reactions: Allergies Allergy/AdvReac Type Severity Reaction Status Date / Time latex Allergy Rash Verified 08/01/19 07:27 aspirin AdvReac GI Upset Verified 08/01/19 07:27 Home Medications: Home Medications Cetirizine HCl [Zyrtec] 10 mg PO BEDTIME 09/16/19 [History Confirmed 09/16/19] PMH/Surg Hx/FS Hx/Imm Hx Endocrine/Hematology History: Denies: Hx Diabetes, Hx Thyroid Disease Cardiovascular History: Denies: Hx Hypertension, Hx Pacemaker/ICD Respiratory History: Reports: Hx Asthma Denies: Hx Chronic Obstructive Pulmonary Disease (COPD) GI History: Denies: Hx Ulcer History: Denies: Hx Dialysis Musculoskeletal History: Reports: Hx Arthritis - OSTEO- LEFT THUMB, Other Musculoskeletal History - ELBOWS- STATES RELATED TO CARPAL TUNNEL Denies: Hx Scoliosis Sensory History: Reports: Hx Contacts or Glasses - WILL WEAR GLASSES DAY OF SURGERY Denies: Hx Hearing Aid Opthamlomology History: Reports: Hx Contacts or Glasses - WILL WEAR GLASSES DAY OF SURGERY EENT History: Denies: Hx Deafness Neurological History: Denies: Hx Headaches Psychiatric History: Reports: Hx Anxiety - ON MEDICATION FOR, Hx Depression - ON MEDICATION Denies: Hx Panic Disorder - Surgical History Surgery Procedure, Year, and Place: 11/23 lt knee meniscus,right knee, tonsillectomy, hysterectomy Hx Anesthesia Reactions: Yes - HYSTERECTOMY- N/V- TREATED WITH RELIEF Infectious Disease History: No Infectious Disease History: Denies: Hx Clostridium Difficile, Hx Hepatitis, Hx Human Immunodeficiency Virus (HIV), Hx of Known/Suspected MRSA, Hx Shingles, Hx Tuberculosis, Hx Known/ Suspected VRE, Hx Known/Suspected VRSA, History Other Infectious Disease, Traveled Outside the [place] in Last 30 Days - Family History Known Family History: Positive: Cardiac Disease - paternal grandfather, Hypertension, Non-Contributory - Social History Alcohol Use: Occasionally Hx Substance Use: No Substance Use Type: Reports: None Hx Tobacco Use: No Smoking Status (MU): Never Smoked Tobacco Review of Systems Constitutional: Negative Eyes: Negative ENT: Negative Cardiovascular: Negative Respiratory: Negative Positive: Abdominal Pain Genitourinary: Negative Musculoskeletal: Negative Skin: Negative Neurological: Negative Psychological: Normal All Other Systems Reviewed And Are Negative: Yes Physical Exam - Summary Physical Exam Summary: Tenderness in left upper quadrant and left lower quadrant. Abdominal exam otherwise unremarkable. Triage Information Reviewed: Yes Vital Signs On Initial Exam: Initial Vitals Temp Pulse Resp BP Pulse Ox 97.2 F 81 18 139/89 98 09/15/19 23:19 09/15/19 23:19 09/15/19 23:19 09/15/19 23:19 09/15/19 23:19 Vital Signs Reviewed: Yes Appearance: Positive: Well-Appearing Skin: Positive: Warm Head/Face: Positive: Normal Head/Face Inspection Eyes: Positive: Normal Neck: Positive: Supple Respiratory/Lung Sounds: Positive: Clear to Auscultation Cardiovascular: Positive: Normal Abdomen Description: Positive: Other: Musculoskeletal: Positive: Normal Neurological: Positive: Normal Psychiatric: Positive: Normal AVPU Assessment: Alert - [place] Coma Scale Best Eye Response: 4 - Spontaneous Best Motor Response: 6 - Obeys Commands Best Verbal Response: 5 - Oriented Coma Scale Total: 15 Procedures - Sedation Patient Received Moderate/Deep Sedation with Procedure: No Diagnostics - Vital Signs Vital Signs Temp Pulse Resp BP Pulse Ox 09/15/19 23:19 97.2 F 81 18 139/89 98 - Laboratory Result Diagrams: 09/15/19 23:55 09/15/19 23:55 Lab Statement: Any lab studies that have been ordered have been reviewed, and results considered in the medical decision making process. Abdominal Pain Fem Course/Dx - Course Course Of Treatment: Patient complains of left upper quadrant abdominal pain 2 days occasionally radiating down to left lower quadrant. Abdominal pain described as constant, sharp, new onset, at worst 10/10, currently 3/10, worse with food, worse with movement. Denies fever, cough, sore throat, CP, SOB, N/3/ D, change in urine, change in BM, vaginal symptoms. Medical history is none. Abdominal surgical history is complete hysterectomy. Nonsmoker. Vital signs within normal limits. Labs unremarkable. CT abdomen and pelvis negative. Patient states pain improved with GI cocktail. - Diagnoses Provider Diagnoses: Gastritis Discharge ED - Sign-Out/Discharge Documenting (check all that apply): Patient Departure - Discharge Plan Condition: Stable Disposition: HOME Prescriptions: Lidocaine 2% VISCOUS* [Xylocaine 2% Viscous*] 15 ml SWISH SPIT Q6H PRN #1 btl PRN Reason: Pain - Severe Omeprazole 20 mg PO DAILY 30 Days #30 capsule. Patient Education Materials: Gastritis (ED) Referrals: Lexi Escamilla DO [Primary Care Provider] - Logan Medina MD [Medical Doctor] - Additional Instructions: Take omeprazole daily. Used lidocaine as directed for breakthrough left upper quadrant pain. Follow-up with GI Dr. Medina for further evaluation of gastritis. Return to the ED for any new or worsening symptoms. - Billing Disposition and Condition Condition: STABLE Disposition: Home
[2019-09-16 00:04] LABS: ABS Basophils 0.1 10^3/ul (0-0.2); ABS Eosinophils 0.1 10^3/ul (0-0.6); ABS Lymphocytes 2.1 10^3/ul (1.0-4.8); ABS Monocytes 0.5 10^3/ul (0-0.8); ABS Neutrophils 3.6 10^3/ul (1.5-7.7); Eosinophil % 2.3 %; Hematocrit 39 % (35-47); Lymphocyte % 33.1 %; Mean Corpuscular HGB Conc 34 g/dL (31-36); Mean Corpuscular Hemoglobin 27 pg (27-31); Mean Corpuscular Volume 82 fL (80-97); Mean Platelet Volume 8.3 fL (7.4-10.4); Platelet Count 284 10^3/uL (150-450); Red Blood Count 4.74 10^6 /uL (3.70-4.87); Red Cell Distribution Width 15 % (10-15); White Blood Count 6.5 10^3/uL (3.5-10.8)
[2019-09-16 00:19] LABS: Albumin/Globulin Ratio 1.7 (1-3); BUN/Creatinine Ratio 20.5 (8-20); C Reactive Protein 5.77 mg/L (<8.01); EGFR African American 99.8 (>60); EGFR Non-African American 82.5 (>60); Globulin 2.3 g/dL (2-4); Potassium 3.7 mmol/L (3.5-5.0); Total Bilirubin 0.3 mg/dL (0.2-1.0); Total Protein 6.3 g/dL (6.4-8.9)
[2019-09-16] MEDS ORDERED: Iohexol 300* (CONTRAST) 10 ML SDV IV ONE (00:25)
[2019-09-16 01:29] LABS: Urine Appearance Clear; Urine Bilirubin Negative (Negative); Urine Blood Negative (Negative); Urine Color Straw; Urine Glucose Negative (Negative); Urine Ketones Negative (Negative); Urine Nitrite Negative (Negative); Urine Protein Negative (Negative); Urine Specific Gravity 1.047 (1.010-1.030); Urine Urobilinogen Negative (Negative)
[2019-09-16] MEDS ORDERED: Lidocaine 2% VISCOUS* 15 ML UDC PO ONE (01:35)
[2019-09-16] MEDS ORDERED: Al Hydrox/Mg Hydrox/Simet LIQ* 30 ML UDC PO ONE (01:35)
[2019-09-16] MEDS ORDERED: Pantoprazole TAB * 40 MG TAB PO ONE (02:13)
[2019-09-16 02:22] VITALS: BP 136/79
== END 2019-09-16 02:30 | disposition home or self-care (01) ==
LOC: ED 23:17
DX: K29.70 Gastritis, unspecified, without bleeding (principal); R10.12 Left upper quadrant pain; Z79.899 Other long term (current) drug therapy; F41.9 Anxiety disorder, unspecified; F32.9 Major depressive disorder, single episode, unspecified
CPT/HCPCS: 36415; 74177; 80053; 81003; 83605; 83690; 84484; 85025; 86140; 93005; 99283; A9270-GY; Q9967